=== PATIENT | male | born 1970 | race African-American/Black ===

== ENCOUNTER 2017-12-10 15:50 | Inpatient (IN) | payer OTHER ==
[2017-12-10 16:52] LABS: HEMATOCRIT 46.3 % (42.0-52.0); HEMOGLOBIN 15.2 g/dl (13.5-17.5); MEAN CORPUSCULAR HEMOGLOBIN 26.1 pg (27.0-33.0); MEAN CORPUSCULAR HGB CONC 32.8 g/dl (32.0-36.5); MEAN CORPUSCULAR VOLUME 79.4 fl (80.0-96.0); PLATELET COUNT, AUTOMATED 236 10^3/uL (150-450); RED BLOOD COUNT 5.83 10^6/uL (4.30-6.10); RED CELL DISTRIBUTION WIDTH 14.8 % (11.5-14.5); WHITE BLOOD COUNT 4.1 10^3/uL (4.0-10.0)
[2017-12-10 17:14] LABS: AMPHETAMINES LEVEL URINE NEGATIVE (NEGATIVE); BARBITURATES URINE NEGATIVE (NEGATIVE); BENZODIAZEPINES URINE NEGATIVE (NEGATIVE); CANNABINOIDS URINE NEGATIVE (NEGATIVE); COCAINE METABOLITE URINE NEGATIVE (NEGATIVE); METHADONE URINE NEGATIVE (NEGATIVE); OPIATES URINE NEGATIVE (NEGATIVE); PHENCYCLIDINE URINE NEGATIVE (NEGATIVE)
[2017-12-10 17:54] LABS: ACETAMINOPHEN LEVEL < 2.0 UG/ML (10.0-30.0); ALBUMIN 4.3 GM/DL (3.2-5.2); ALBUMIN/GLOBULIN RATIO 1.19 (1.00-1.93); ALKALINE PHOSPHATASE 75 U/L (45-117); ALT/SGPT 28 U/L (12-78); ANION GAP 7 MEQ/L (8-16); AST/SGOT 18 U/L (7-37); BILIRUBIN,DIRECT 0.2 MG/DL (0.0-0.2); BILIRUBIN,TOTAL 1.1 MG/DL (0.2-1.0); BLOOD UREA NITROGEN 12 MG/DL (7-18); CALCIUM LEVEL 9.7 MG/DL (8.5-10.1); CARBON DIOXIDE LEVEL 32 MEQ/L (21-32); CHLORIDE LEVEL 104 MEQ/L (98-107); CREATININE FOR GFR 1.14 MG/DL (0.70-1.30); ETHYL ALCOHOL (ETHANOL) < 0.003 % (0.000-0.010); GLOMERULAR FILTRATION RATE > 60.0 (>60); GLUCOSE, FASTING 85 MG/DL (70-100); POTASSIUM SERUM 3.9 MEQ/L (3.5-5.1); SALICYLATE LEVEL < 1.7 MG/DL (5.0-30.0); SODIUM LEVEL 143 MEQ/L (136-145); TOTAL PROTEIN 7.9 GM/DL (6.4-8.2)
[2017-12-10] MEDS ORDERED: MOM 30ML SUSPENSION UDC PO (20:00)
[2017-12-10] MEDS ORDERED: MAALOX 30 ML SUSP *UDC PO (20:00)
[2017-12-10] MEDS ORDERED: LORazepam 1 MG TAB PO (20:00)
[2017-12-11] MEDS ORDERED: FLUoxetine 10 MG CAP PO (09:00)
[2017-12-11] MEDS: SERTRALINE HCL 50 MG TAB PO ×2 (13:57→21:29)
[2017-12-11] MEDS: ATORVASTATIN 20 MG TAB PO (13:57)
[2017-12-11] MEDS: LISINOPRIL 20 MG TAB PO (14:00)
[2017-12-11] MEDS: traZODone 50 MG TAB PO (21:29)
[2017-12-11] MEDS: PRAZOSIN 1 MG CAP PO (21:30)
[2017-12-12] MEDS: ATORVASTATIN 20 MG TAB PO (08:41)
[2017-12-12] MEDS: SERTRALINE HCL 50 MG TAB PO (08:41)
[2017-12-12] MEDS: LISINOPRIL 20 MG TAB PO (08:41)
[2017-12-13] MEDS: SERTRALINE HCL 50 MG TAB PO ×2 (00:05→23:04)
[2017-12-13] MEDS: PRAZOSIN 1 MG CAP PO ×2 (00:07→23:04)
[2017-12-13] MEDS: ATORVASTATIN 20 MG TAB PO (09:16)
[2017-12-13] MEDS: LISINOPRIL 20 MG TAB PO (09:19)
[2017-12-14] MEDS: ACETAMINOPHEN TAB 650MG DOSE (2X325MG) PO (07:54)
[2017-12-14] MEDS: ATORVASTATIN 20 MG TAB PO (08:54)
[2017-12-14] MEDS: LISINOPRIL 20 MG TAB PO (08:55)
[2017-12-14] MEDS: SERTRALINE HCL 50 MG TAB PO (21:00)
[2017-12-14] MEDS: traZODone 50 MG TAB PO (21:00)
[2017-12-14] MEDS: PRAZOSIN 1 MG CAP PO (21:01)
[2017-12-15] MEDS: ATORVASTATIN 20 MG TAB PO (08:48)
[2017-12-15] MEDS: LISINOPRIL 20 MG TAB PO (08:48)
[2017-12-15] MEDS: traZODone 50 MG TAB PO (21:54)
[2017-12-15] MEDS: SERTRALINE HCL 50 MG TAB PO (21:54)
[2017-12-15] MEDS: PRAZOSIN 1 MG CAP PO (21:54)
[2017-12-16] MEDS: ATORVASTATIN 20 MG TAB PO (08:22)
[2017-12-16] MEDS: LISINOPRIL 20 MG TAB PO (08:22)
== END 2017-12-16 11:40 | disposition home or self-care (01) | DRG 881 ==
LOC: M PSY 12-11 00:05 → M ED 15:50 → M ED INP 20:00
DX: F34.1 Dysthymic disorder (principal); Z91.5 Personal history of self-harm; G47.00 Insomnia, unspecified; I10 Essential (primary) hypertension; M54.5 Low back pain; Z79.82 Long term (current) use of aspirin; Z79.899 Other long term (current) drug therapy; Z88.0 Allergy status to penicillin; F43.10 Post-traumatic stress disorder, unspecified

== ENCOUNTER 2018-05-25 06:58 | Day surgery (SDC) | payer OTHER ==
[~2018-05-25] VITALS: Ht 170.2 cm; Wt 98.0 kg
[~2018-05-25 06:58] MED LIST: AMLO25TA PO; ASPI81TA85 PO; ATOR1TAB21 PO; LISI-538 PO; MINI1CAP PO; NS 1,000 ML IV ONE; PROZ20CA11 PO; SERT50TA PO; TRAZ-160 PO; TRAZO50TA PO
[2018-05-25] MEDS ORDERED: LIDOCAINE 2% INJ 100 MG/5 ML SDV (FOR ANES.) As Ordered ONE (07:03)
[2018-05-25] MEDS ORDERED: PROPOFOL 200 MG/20 ML VIAL As Ordered ONE ×2 (07:03→07:36)
--- NOTE | 2018-05-25 08:06 | ROOR ---
Patient Name: Anil Moreno Procedure Date: 05/25/2018 7:29 AM Date of : 1970 Age: 48 Room: [facility] Gender: Male Note Status: Finalized Procedure: Colonoscopy Indications: Hematochezia Providers: Román Bartlett MD Referring MD: CHI MIRELES MD Requesting Provider: Medicines: Monitored Anesthesia Care Complications: No immediate complications. Procedure: Pre-Anesthesia Assessment: - Prior to the procedure, a History and Physical was performed, and patient medications and allergies were reviewed. The patient is competent. The risks and benefits of the procedure and the sedation options and risks were discussed with the patient. All questions were answered and informed consent was obtained. Patient identification and proposed procedure were verified by the physician, the nurse and the anesthesiologist in the procedure room. Mental Status Examination: alert and oriented. Airway Examination: normal oropharyngeal airway and neck mobility. Respiratory Examination: clear to auscultation. CV Examination: normal. Prophylactic Antibiotics: The patient does not require prophylactic antibiotics. Prior Anticoagulants: The patient has taken no previous anticoagulant or antiplatelet agents. ASA Grade Assessment: II - A patient with mild systemic disease. After reviewing the risks and benefits, the patient was deemed in satisfactory condition to undergo the procedure. The anesthesia plan was to use monitored anesthesia care (MAC). Immediately prior to administration of medications, the patient was re-assessed for adequacy to receive sedatives. The heart rate, respiratory rate, oxygen saturations, blood pressure, adequacy of pulmonary ventilation, and response to care were monitored throughout the procedure. The physical status of the patient was re-assessed after the procedure. The Colonoscope was introduced through the anus and advanced to the cecum, identified by appendiceal orifice and ileocecal valve. The colonoscopy was performed without difficulty. The patient tolerated the procedure well. The quality of the bowel preparation was good. The ileocecal valve, appendiceal orifice, and rectum were photographed. Scope insertion time was 4 minutes. The total duration of the procedure was 11 minutes. The total duration of the procedure was 15 minutes. Findings: The perianal and digital rectal examinations were normal. A 3 mm polyp was found in the ascending colon. The polyp was sessile. The polyp was removed with a jumbo cold forceps. Resection and retrieval were complete. Verification of patient identification for the specimen was done by the physician and nurse using the patient's name, date and medical record number. Estimated blood loss was minimal. Non-bleeding external and internal hemorrhoids were found during retroflexion. The hemorrhoids were large. Impression: - One 3 mm polyp in the ascending colon, removed with a jumbo cold forceps. Resected and retrieved. - Non-bleeding external and internal hemorrhoids. Recommendation: - Patient has a contact number available for emergencies. The signs and symptoms of potential delayed complications were discussed with the patient. Return to normal activities tomorrow. Written discharge instructions were provided to the patient. - High fiber diet. - Continue present medications. - Preparation H ointment: Apply externally daily for 7 days. - Await pathology results. - Repeat colonoscopy in 5-10 years for surveillance based on pathology results. - Based on the biopsy results you will receive a phone call from GI clinic in 2-3 weeks to review the pathology results AND/OR your results will be faxed to your Primary care physician. - Return to primary care physician. Román Bartlett MD Román Bartlett MD 05/25/2018 8:06:09 AM This report has been signed electronically. Number of Addenda: 0 Note Initiated On: 05/25/2018 7:29 AM Estimated Blood Loss: Estimated blood loss was minimal.
[2018-05-25 08:34] VITALS: BP 123/69
== END 2018-05-25 08:36 | disposition home or self-care (01) ==
LOC: M OPP 06:58
PROVIDERS: ATTEND Internal Medicine Gastroenterology
DX: K92.1 Melena (principal); D12.2 Benign neoplasm of ascending colon; K64.8 Other hemorrhoids; Z79.82 Long term (current) use of aspirin; Z79.899 Other long term (current) drug therapy; Z88.0 Allergy status to penicillin

== ENCOUNTER → 2018-06-22 | Outpatient (CLI) | payer OTHER ==
[~2018-06-22] MED LIST changes: -NS 1,000 ML IV ONE; +SERT-141 PO; -SERT50TA PO
--- NOTE | 2018-06-24 10:25 | SLEEPCENT ---
DATE OF PROCEDURE: 06/22/2018 ORDERING PROVIDER: Yajaira Martin NP Nocturnal polysomnography was performed for evaluation of sleep physiology in this patient with a history of excessive somnolence and morning headaches who has comorbidities of hypertension. 7 hours and 54 minutes of data were reviewed. There were 402 minutes of sleep identified. Sleep latency was prolonged at 47 minutes. Rapid eye movement (REM) latency was normal at 88 minutes. Sleep architecture showed poor progression late in the study. Some fragmentation was seen. Overall sleep efficiency was 86%. The electrocardiogram showed sinus rhythm with an average heart rate of 75 beats per minute. Electroencephalogram (EEG) showed some artifactual changes but no focal events and normal waveforms for awake and sleep. There were 56 respiratory events identified of 10 seconds in duration or greater for a respiratory event index of 9 per hour. The events were primarily obstructive, not exclusive to sleep stage, more frequent in the supine posture. Arousals from respiratory events occurred 4.2 times per hour and oxygen desaturations in the 80s were seen. There was some limb activity and limb movement arousal index is only 3.9. IMPRESSION: Obstructive sleep apnea syndrome (G47.33). Apnea-hypopnea index 9. RECOMMENDATIONS: The patient should be encouraged to return to the sleep disorder center for pressure therapy. In the interim, alcohol and sedative avoidance should be practiced and caution exercised during the operation of motor vehicles.
== END ==
LOC: M SLEEP 19:51
PROVIDERS: ATTEND Nurse Practitioner Family
DX: G47.33 Obstructive sleep apnea (adult) (pediatric) (principal)

== ENCOUNTER → 2018-08-01 | Outpatient (CLI) | payer OTHER ==
--- NOTE | 2018-08-05 08:50 | SLEEPCENT ---
DATE OF PROCEDURE: 08/01/2018 ORDERED BY: Yajaira Martin NP Nocturnal polysomnography was performed for the titration of pressure therapy in this patient with obstructive sleep apnea syndrome. Apnea-hypopnea index of 9. For testing, a ResMed Mirage FX nasal mask of wide variety was used, 4 cm of water pressure were applied to the circuit, and the lights were extinguished. 7 hours and 30 minutes of data were reviewed. There were 418 minutes of sleep identified. Sleep latency was normal at 9 minutes. Rapid eye movement (REM) latency mildly delayed at 102 minutes. Sleep architecture was good with three REM cycles. Overall sleep efficiency was 93.8%. The electrocardiogram showed a sinus rhythm with an average heart rate of 65 beats per minute. Electroencephalogram (EEG) was mildly artifactual, otherwise normal waveforms for awake and sleep. Respiratory events were fully palliated with C-PAP of pressure +6. Remaining measures of sleep physiology were normal. IMPRESSION: Obstructive sleep apnea syndrome (G47.33) RECOMMENDATIONS: Nightly use of pressure therapy 6 cm of water.
== END ==
LOC: M SLEEP 19:52
PROVIDERS: ATTEND Nurse Practitioner Family
DX: G47.33 Obstructive sleep apnea (adult) (pediatric) (principal)

== ENCOUNTER → 2018-09-08 | Outpatient (REF) ==
[~2018-09-08] MED LIST changes: -TRAZ-160 PO; +TRAZ-252 PO; +TRAZ1TAB10 PO; -TRAZO50TA PO
--- NOTE | 2018-09-08 13:49 | REP ---
Right shoulder three views: There are no comparisons. The acromioclavicular joint is widened. This could be congenital, post-traumatic or postsurgical. There is no elevation of the distal clavicle. The glenohumeral joint is unremarkable. There is no fracture or dislocation. There is a metallic plate at the proximal humeral shaft. Impression: Widened acromioclavicular joint. Metallic plate at the proximal humeral shaft. Electronically Signed by Ta Glass MD 09/08/2018 01:40 P
--- NOTE | 2018-09-08 14:09 | REP ---
LUMBAR SPINE SERIES: THREE VIEWS PARTIAL STUDY. HISTORY: Degenerative disc disease. No comparison radiographs. FINDINGS: There is mild straightening. Lumbar vertebral body heights are preserved. Alignment is normal. There is no evidence of spondylolysis or spondylolisthesis. Disc spaces are maintained. Facets are unremarkable. Psoas margins are symmetric. Sacrum and SI joints are intact. IMPRESSION: Negative lumbar spine radiographs. Electronically Signed by Landon Henderson MD 09/08/2018 04:07 P
== END ==
LOC: M SMT 11:50
PROVIDERS: ATTEND Internal Medicine
DX: Z02.71 Encounter for disability determination (principal)

== ENCOUNTER → 2018-12-11 | Outpatient (CLI) | payer OTHER ==
--- NOTE | 2018-12-11 10:36 | REP ---
MRI RIGHT SHOULDER: Comparison study [place] 12/11/2016. Since that time the patient has had debridement of a slap tear and biceps tenodesis. The patient also had distal clavicle excision. This was performed 08/22/2017. There is mild ill-defined high signal involving the supraspinatus and infraspinatus tendons compatible with mild tendinopathy/tendonitis. No focal tear is seen of any of the rotator cuff tendons. Mild fluid is seen in the acromioclavicular joint with evidence of the prior distal clavicle excision. Acromion is downward sloping and type 2. Biceps tendon is not seen in the bicipital groove. Compatible with the prior tenodesis. There is no Hill Sach's deformity. The deltoid muscle demonstrates no abnormal signal. Superior labrum has a truncated appearance. Compatible with prior debridement. No new superior labral tear is seen. The other portions of the labrum remain intact with no paralabral cyst. Mild diffuse chondromalacia at the glenohumeral joint is stable. There are new subchondral cystic change of a mild degree in the superolateral humeral head. Otherwise no new marrow signal abnormality is seen. There is a normal amount of fluid at the glenohumeral joint. There is mild fluid in the subacromial, subdeltoid bursae which may indicate an element of bursitis. IMPRESSION: There are findings compatible with mild supraspinatus and infraspinatus tendinopathy/tendonitis. No rotator cuff tendon tear. Post-surgical changes noted as discussed in detail above. Truncated superior labrum. There is no new labral tear identified. There are mild new subchondral cystic changes in the superolateral humeral head. There is mild stable chondromalacia at the glenohumeral joint. There is mild fluid in the subacromial subdeltoid bursae possibly indicating an element of bursitis. Electronically Signed by Ta Elaine MD 12/11/2018 06:33 P
== END ==
LOC: M RAD 06:52
PROVIDERS: ATTEND Family Medicine
DX: M25.511 Pain in right shoulder (principal)